=== PATIENT | female | born 1965 | race Caucasian/White ===

== ENCOUNTER 2024-06-09 09:58 | Outpatient (CLI) | payer OTHER | END 2024-06-09 09:59 | disposition home or self-care (01) | LOC: CSHMAMMO 09:58 | PROVIDERS: ATTEND Family Medicine | DX: Z12.31 Encounter for screening mammogram for malignant neoplasm of breast (principal); S42.254D Nondisplaced fracture of greater tuberosity of right humerus, subsequent encounter for fracture with routine healing; N64.89 Other specified disorders of breast; M85.89 Other specified disorders of bone density and structure, multiple sites; Z85.828 Personal history of other malignant neoplasm of skin | CPT/HCPCS: 77063; 77067; 77080 ==